=== PATIENT | male | born 1955 | race Caucasian/White ===

== ENCOUNTER 2018-08-05 14:00 | Inpatient (IN) | END 2018-08-07 14:59 | disposition home or self-care (01) | DRG 310 ==

== ENCOUNTER 2018-08-17 05:58 | Inpatient (IN) | END 2018-08-19 17:50 | disposition home or self-care (01) | DRG 291 ==

== ENCOUNTER 2019-02-03 08:59 | Emergency (ER) | payer BC ==
[~2019-02-03] VITALS: Ht 177.8 cm; Wt 100.7 kg
[~2019-02-03 08:59] MED LIST: ADV50050 INHALATION; APIX5TAB PO; BISO5TAB21 PO; DIGO250T PO; FURO20TA3 PO; LEVA0.634 HHN; LOSA25TA12 PO; TIOT18CA INHALATION
[2019-02-03 09:02] VITALS: Ht 177.8 cm; Wt 100.7 kg
[2019-02-03] MEDS ORDERED: SOD CHLORIDE 0.9% 500 ML IV STA (09:41)
[2019-02-03] MEDS ORDERED: ONDANSETRON 4 MG INJ IV STA (09:41)
[2019-02-03] MEDS ORDERED: ONDA4TAB14 PO (11:17)
[2019-02-03] MEDS ORDERED: AZIT250T PO (11:18)
[2019-02-03 11:30] VITALS: BP 133/79; PULSE 75; RESP 18
--- NOTE | 2019-02-03 12:42 | ERD ---
ER Documentation Chief Complaint Chief Complaint NAUSEA X 4 DAYS; INCREASED BLOOD PRESSURE HPI This is a 63-year-old male with a past medical history of hypertension. The patient indicates for the past 4 days he is felt very nauseous and had a nonproductive cough. He has a history of COPD. He had no fevers no shaking no chills. He indicates that today he took his blood pressure at home and it was elevated with a systolic of 180 mmHg. He denies a headache. Again he had no chest pain and no shortness of breath at rest or exertion. No swelling of his lower extremities. He has been compliant with all his medications. The patient is on digoxin as he has a remote history of atrial fibrillation. He denies any abdominal pain ROS All systems reviewed and are negative except as per history of present illness. Medications Home Meds Active Scripts Azithromycin* (Zithromax*) 250 Mg Tablet, 250 MG PO .ZPACK DIRECTED, #6 TAB TAKE 500 MG (2 TABS) THE FIRST DAY THEN 250 MG (1 TAB) DAYS 2-5 Prov:CHARU ADAMS MD 02/03/19 Ondansetron (Ondansetron Odt) 4 Mg Tab.rapdis, 4 MG PO Q6H PRN for NAUSEA AND/OR VOMITING, #10 TAB Prov:CHARU ADAMS MD 02/03/19 Levalbuterol Hcl* (Levalbuterol Hcl*) 0.63 Mg/3 Ml Vial.neb, 0.63 MG HHN Q6H RESP THERAPY, #1 VIAL 1 Refill Prov:YASMEEN GUERRERO 08/19/18 Furosemide* (Furosemide*) 20 Mg Tablet, 20 MG PO DAILY, #60 TAB Prov:YASMEEN GUERRERO 08/19/18 Bisoprolol Fumarate* (Bisoprolol Fumarate*) 5 Mg Tablet, 5 MG PO DAILY, #60 TAB 1 Refill Prov:YASMEEN GUERRERO 08/19/18 Reported Medications Losartan Potassium* (Losartan Potassium*) 25 Mg Tablet, 25 MG PO DAILY, TAB 08/17/18 Digoxin* (Digitek*) 250 Mcg Tablet, 0.25 MG PO DAILY, TAB 08/17/18 Apixaban* (Eliquis*) 5 Mg Tablet, 5 MG PO BID, TAB 08/17/18 Tiotropium [place]* (Spiriva*) 18 Mcg Cap.w.dev, 1 CAP INHALATION DAILY, #30 CAP 08/05/18 Salmeterol Xinaf-Fluticasone* (Advair*) 500/50 Diskus Inhaler, 1 INH INHALATION BID, #1 INHALER 08/05/18 Allergies Allergies: Coded Allergies: Penicillins (Verified Allergy, Unknown, 08/17/18) PMhx/Soc History of Surgery: Yes (kidney stone removal, appendectomy, cholecystemctomy ('99)) Anesthesia Reaction: No Hx Neurological Disorder: No Hx Respiratory Disorders: Yes (COPD) Hx Cardiac Disorders: Yes (afib, htn) Hx Psychiatric Problems: No Hx Miscellaneous Medical Probl: No Hx Alcohol Use: No Hx Substance Use: No Hx Tobacco Use: No Physical Exam Vitals Vital Signs Date Temp Pulse Resp B/P (MAP) Pulse Ox O2 O2 Flow FiO2 Time Delivery Rate 02/03/19 75 18 133/79 99 Room Air 11:30 (97) 02/03/19 70 137/84 10:24 (101) 02/03/19 72 135/89 10:00 (104) 02/03/19 98.4 77 19 180/100 97 09:02 (126) Physical Exam Constitutional:Well-developed. Well-nourished. HEENT:Normocephalic. Atraumatic.Pupils were equal round reactive to light. Moist mucous membranes.No tonsillar exudates. Neck: No nuchal rigidity. No lymphadenopathy. No posterior cervical spine tenderness or step-offs. Respiratory: Not using accessory muscles of respiration.Lungs were clear to auscultation bilaterally. No rhonchi. No rales. Very mild wheezing on end expiration bilaterally. Cardiovascular: Regular rate regular rhythm.No murmurs. No rubs were appreciated.S1, S2 normal. Distal pulses are palpable 2+ bilaterally. GI: Abdomen was soft. Nontender. Non Distended. No pulsatile abdominal masses or bruits. No rebound. No guarding. Bowel sounds were present and normal. Muscle skeletal: Full range of motion of both the upper and lower extremities bilaterally.Normal muscle tone.No assymetrical calf tenderness or swelling. Skin: No petechia, no purpura. No lesions on the palms or the soles of the feet. No maculopapular rash. NEURO: Patient was alert, awake, orientated x3.No facial droop. Gait observed and normal with no ataxia.Speech had regular rate and rhythm. No focal neurological deficits. Result Diagram: 02/03/19 1003 02/03/19 1003 Results 24 hrs Laboratory Tests Test 02/03/19 10:03 White Blood Count 6.1 10^3/ul Red Blood Count 4.97 10^6/ul Hemoglobin 15.9 g/dl Hematocrit 45.5 % Mean Corpuscular Volume 91.5 fl Mean Corpuscular Hemoglobin 32.0 pg Mean Corpuscular Hemoglobin Concent 34.9 g/dl Red Cell Distribution Width 11.8 % Platelet Count 216 10^3/UL Mean Platelet Volume 10.3 fl Immature Granulocytes % 0.300 % Neutrophils % 70.0 % Lymphocytes % 18.3 % Monocytes % 9.6 % Eosinophils % 0.8 % Basophils % 1.0 % Nucleated Red Blood Cells % 0.0 /100WBC Immature Granulocytes # 0.020 10^3/ul Neutrophils # 4.3 10^3/ul Lymphocytes # 1.1 10^3/ul Monocytes # 0.6 10^3/ul Eosinophils # 0.1 10^3/ul Basophils # 0.1 10^3/ul Nucleated Red Blood Cells # 0.0 10^3/ul Prothrombin Time 13.5 Sec Prothrombin Time Ratio 1.1 INR International Normalized Ratio 1.02 Activated Partial Thromboplast Time 28.7 Sec Urine Color COLORLESS Urine Clarity CLEAR Urine pH 7.0 Urine Specific [place] 1.004 Urine Ketones NEGATIVE mg/dL Urine Nitrite NEGATIVE mg/dL Urine Bilirubin NEGATIVE mg/dL Urine Urobilinogen NEGATIVE mg/dL Urine Leukocyte Esterase NEGATIVE Simran/ul Urine Microscopic RBC 0 /HPF Urine Microscopic WBC 0 /HPF Urine Hemoglobin 1+ mg/dL Urine Glucose NEGATIVE mg/dL Urine Total Protein NEGATIVE mg/dl Sodium Level 141 mmol/L Potassium Level 4.3 mmol/L Chloride Level 106 mmol/L Carbon Dioxide Level 27 mmol/L Anion Gap 8 Blood Urea Nitrogen 16 mg/dl Creatinine 0.81 mg/dl Est Glomerular Filtrat Rate mL/min > 60 mL/min Glucose Level 110 mg/dl Calcium Level 9.5 mg/dl Total Bilirubin 0.7 mg/dl Direct Bilirubin 0.00 mg/dl Indirect Bilirubin 0.7 mg/dl Aspartate Amino Transf (AST/SGOT) 24 IU/L Alanine Aminotransferase (ALT/SGPT) 35 IU/L Alkaline Phosphatase 56 IU/L Troponin I < 0.012 ng/ml Total Protein 7.2 g/dl Albumin 4.4 g/dl Globulin 2.80 g/dl Albumin/Globulin Ratio 1.57 Amylase Level 71 U/L Lipase 123 U/L Current Medications Medications Dose Sig/Demarcus Start Time Status Last (Trade) Ordered Route PRN Stop Time Admin Dose Reason Admin Sodium 500 ml @ Q1H STAT 02/03/19 DC 02/03/19 Chloride 500 mls/hr IV 09:41 02/03/19 10:13 10:40 Ondansetron 4 mg ONCE STAT 02/03/19 DC 02/03/19 HCl (Zofran IV 09:41 02/03/19 10:13 Inj) 09:44 Clonidine 0.1 mg ONCE ONCE 02/03/19 DC (Catapres) PO 10:00 02/03/19 10:01 Procedures/MDM This patient presented to the emergency department with elevated blood pressure. My differential diagnosis included but was not limited to conditions that could end-organ damage such as acute coronary syndrome, acute pulmonary edema, aortic dissection, subarachnoid hemorrhage, intracerebral hemorrhage, cerebral infarction, withdrawal syndromes from beta blockers, or states of catecholamine excess such as pheochromocytoma or drug intoxication. Ancillary lab work was obtained. There was no elevation in the BUN and creatinine to suggest acute renal failure. Electrolytes were normal. Cardiac enzyme was normal and the 12 lead EKG showed no acute ischemic changes or left ventricular hypertrophy. 12 Lead EKG tracing ordered and reviewed by myself showed: Normal sinus rhythm of 70 bpm and no arrhythmia. CA interval normal. QRS duration normal. No ST segment elevation No ST segment depression. No changes consistent with acute ischemia. Patient is on digoxin with no evidence of atrial fibrillation. Patient had no severe electrolyte abnormalities. There is no leukocytosis. I obtained a chest radiograph which showed no pneumonia. The patient does have known history of COPD with nausea and a productive cough. I did feel the patient would benefit from a trial of outpatient antibiotics to treat suspected acute bronchitis. He was given Zofran for the nausea. The patient stated above is on digoxin and therefore azithromycin is contraindicated and the patient was placed on amoxicillin for the next 5 days. Given that the patient had an absence of cerebral, ocular, cardiac or renal damage the hypertensive urgency was treated with oral agents in the emergency room with improvement of the patient's blood pressure. The patient likely appeared to be complaint with primary care physician and will follow up with their PCP in the next 24-48 hours. They were instructed to return to the emergency department at anytime if there is any worsening of their condition such as development of chest pain or a headache. They were instructed to resume previous medication regimen or initiate a suitable medication regimen under care of the PCP to enable proper monitoring for drug reactions. The patient was also informed on the adverse side effects and adverse drug interactions of the medications prescribed to them by myself. The patient gave informed consent to the prescription of the new medication. Departure Diagnosis: Primary Impression: Nausea Additional Impressions: Bronchitis Accelerated hypertension Condition: Fair Patient Instructions: Nausea, Uri, Viral, No Abx (Adult) CHARU ADAMS MD February 03, 2019 12:42
== END 2019-02-03 11:33 | disposition home or self-care (01) ==
LOC: FTE 08:59
DX: J40 Bronchitis, not specified as acute or chronic (principal); I10 Essential (primary) hypertension; J44.9 Chronic obstructive pulmonary disease, unspecified; R10.9 Unspecified abdominal pain
CPT/HCPCS: 71045; 80053; 81001; 82150; 83690; 84484; 85025; 85610; 85730; 87086; 93005; 96374; 99285; J2405; J7040

== ENCOUNTER 2019-05-12 11:47 | Emergency (ER) | payer BC ==
[~2019-05-12] VITALS: Ht 177.8 cm; Wt 86.0 kg
[~2019-05-12 11:47] MED LIST changes: +AZIT250T PO; +HYDR-3671 PO; +LORA0.5T PO; +ONDA4TAB14 PO; +ONDA8TAB14 PO; +PANT40TA3 PO; +TRAZ-149 PO; +ZOLP5TAB PO
[2019-05-12 11:54] VITALS: Ht 177.8 cm; Wt 86.0 kg
--- NOTE | 2019-05-12 12:19 | ERD ---
ER Documentation Chief Complaint Chief Complaint pt is bib self, with c/o high blood pressure HPI The patient is a 74-year-old male, presenting to the ER because he took his blood pressure at 11:45 PM, it was 189/103, therefore he came to the emergency department. He has been under a lot of stress due to his gastrointestinal problems that he has extensive study and follow-up with his licensed massage therapist. He has not been able to sleep well for the last 3 months only got a couple hours of sleep every night. He denies headache, dizziness, neck pain, chest pain, dyspnea, abdominal pain, vomiting, dysuria, diarrhea. He has a lot of stress in his life, smokes half a pack a day, denies drinking. Past medical history: Hypertension, COPD, atrial fibrillation, CHF Past surgical history: Appendectomy, cholecystectomy ROS All systems reviewed and are negative except as per history of present illness. Medications Home Meds Active Scripts Zolpidem Tartrate* (Ambien*) 5 Mg Tablet, 5 MG PO HS PRN for INSOMNIA, #7 TAB Prov:BERE VILLA MD 05/12/19 Azithromycin* (Zithromax*) 250 Mg Tablet, 250 MG PO .ZPACK DIRECTED, #6 TAB TAKE 500 MG (2 TABS) THE FIRST DAY THEN 250 MG (1 TAB) DAYS 2-5 Prov:CHARU ADAMS MD 02/03/19 Ondansetron (Ondansetron Odt) 4 Mg Tab.rapdis, 4 MG PO Q6H PRN for NAUSEA AND/OR VOMITING, #10 TAB Prov:CHARU ADAMS MD 02/03/19 Levalbuterol Hcl* (Levalbuterol Hcl*) 0.63 Mg/3 Ml Vial.neb, 0.63 MG HHN Q6H RESP THERAPY, #1 VIAL 1 Refill Prov:YASMEEN GUERRERO 08/19/18 Furosemide* (Furosemide*) 20 Mg Tablet, 20 MG PO DAILY, #60 TAB Prov:YASMEEN GUERRERO 08/19/18 Bisoprolol Fumarate* (Bisoprolol Fumarate*) 5 Mg Tablet, 5 MG PO DAILY, #60 TAB 1 Refill Prov:YASMEEN GUERRERO 08/19/18 Reported Medications Losartan Potassium* (Losartan Potassium*) 25 Mg Tablet, 25 MG PO DAILY, TAB 08/17/18 Digoxin* (Digitek*) 250 Mcg Tablet, 0.25 MG PO DAILY, TAB 08/17/18 Apixaban* (Eliquis*) 5 Mg Tablet, 5 MG PO BID, TAB 08/17/18 Tiotropium [place]* (Spiriva*) 18 Mcg Cap.w.dev, 1 CAP INHALATION DAILY, #30 CAP 08/05/18 Salmeterol Xinaf-Fluticasone* (Advair*) 500/50 Diskus Inhaler, 1 INH INHALATION BID, #1 INHALER 08/05/18 Allergies Allergies: Coded Allergies: Penicillins (Verified Allergy, Unknown, 08/17/18) PMhx/Soc History of Surgery: Yes (kidney stone removal, appendectomy, cholecystemctomy ('99)) Anesthesia Reaction: No Hx Neurological Disorder: No Hx Respiratory Disorders: Yes (COPD) Hx Cardiac Disorders: Yes (afib, htn) Hx Psychiatric Problems: No Hx Miscellaneous Medical Probl: No Hx Alcohol Use: No Hx Substance Use: No Hx Tobacco Use: No Smoking Status: Never smoker Physical Exam Vitals Vital Signs Date Temp Pulse Resp B/P (MAP) Pulse Ox O2 O2 Flow FiO2 Time Delivery Rate 05/12/19 83 138/97 12:13 (111) 05/12/19 98.3 92 18 159/93 98 11:54 (115) Physical Exam Const: No acute distress. Head: Atraumatic. Eyes: Normal Conjunctiva. ENT: Normal External Ears, Nose and Mouth. Neck: Full range of motion. No meningismus. Resp: Clear to auscultation bilaterally. Cardio: Regular rate and rhythm. Abd: Soft, non distended, normal bowel sounds, non tender. Skin: No petechiae or rashes. Back: No midline or flank tenderness. Ext: No cyanosis, or edema. Neur: Awake and alert. No focal deficit Psych: Normal Mood and Affect. Procedures/MDM MEDICAL MAKING DECISION: The patient is a 74-year-old male, presenting to the ER because of high blood pressure at home, currently his blood pressure is 130/97, he does not have any other complaint. He is stable for outpatient follow-up The differential diagnoses considered include but are not limited to stress, medical noncompliance, dietary noncompliance, insomnia Departure Diagnosis: Primary Impression: HTN (hypertension) Additional Impression: Insomnia Condition: Good Comments He was discharged with 7 tablets of Ambien 5 mg at bedtime as needed I discussed the findings with the patient. I advised the patient to follow-up with the primary physician in about 1-2 days, sooner if needed and return if any concern. Disclaimer: Inadvertent spelling and grammatical errors are likely due to EHR/dictation software use and do not reflect on the overall quality of patient care. Also, please note that the electronic time recorded on this note does not necessarily reflect the actual time of the patient encounter. BERE IVLLA MD May 12, 2019 12:19
[2019-05-12 12:48] VITALS: BP 136/88; PULSE 76; RESP 18
== END 2019-05-12 12:49 | disposition home or self-care (01) ==
LOC: E/R 11:47
DX: I11.0 Hypertensive heart disease with heart failure (principal); G47.00 Insomnia, unspecified; I50.9 Heart failure, unspecified; J44.9 Chronic obstructive pulmonary disease, unspecified
CPT/HCPCS: 99283

== ENCOUNTER 2019-05-25 10:38 | Emergency (ER) | payer BC ==
[~2019-05-25] VITALS: Wt 78.0 kg
[2019-05-25 13:31] VITALS: BP 136/68; PULSE 72; RESP 18
== END 2019-05-25 13:31 | disposition home or self-care (01) ==
LOC: E/R 10:38
DX: S40.012A Contusion of left shoulder, initial encounter (principal); I10 Essential (primary) hypertension; J44.9 Chronic obstructive pulmonary disease, unspecified; F17.210 Nicotine dependence, cigarettes, uncomplicated; X58.XXXA Exposure to other specified factors, initial encounter; Y92.9 Unspecified place or not applicable
CPT/HCPCS: 99282